=== PATIENT | male | born 1955 | race Caucasian/White ===

== ENCOUNTER 2020-03-26 17:39 | Observation (INO) ==
[2020-03-26] MEDS ORDERED: Ondansetron 4 MG/2 ML VIAL IVP PRN (20:03)
[2020-03-26] MEDS ORDERED: Ipratropium/Albuterol Neb 3 ML IH PRN (20:05)
[2020-03-26] MEDS ORDERED: Nitroglycerin 0.4 MG TAB.SUBL SL PRN (20:05)
[2020-03-26] MEDS ORDERED: Morphine Sulfate 2 MG/ML SYRINGE IVP PRN (20:06)
[2020-03-26] MEDS ORDERED: Isovue-370 500 ML BOTTLE IVP ONE (20:06)
[2020-03-26] MEDS ORDERED: 0.9 % Sodium Chloride 1,000 ML IVC ONE (20:07)
[2020-03-26] MEDS ORDERED: Aspirin 325 MG TABLET PO ONE (20:09)
[2020-03-27 02:53] LABS: Hematocrit 40.5 % (37.5-50.1); Hemoglobin 13.7 g/dL (12.9-16.9); Mean Corpuscular HGB Conc 33.8 g/dL (31.6-35.5); Mean Corpuscular Hemoglobin 31.1 pg (28.0-33.3); Mean Platelet Volume 9.8 fL (9.4-12.4); Platelet Count 188 K/mcL (140-400); Red Cell Distribution Width 12.9 % (11.5-14.5); White Blood Count 6.8 K/mcL (4.3-11.1)
[2020-03-27 03:12] LABS: BUN/Creatinine Ratio 33 (6-26); Blood Urea Nitrogen 33 mg/dL (8-23); Calcium 9.2 mg/dL (8.6-10.3); Carbon Dioxide 21 mEq/L (23-29); Chloride 106 mEq/L (98-107); Chol/HDL Ratio 5.3 (0-4.9); Cholesterol 155 mg/dL (< 200); Glucose 99 mg/dL (70-105); HDL Cholesterol 29 mg/dL (40-59); LDL Cholesterol,Calculated 88 mg/dL (< 100); Osmolality,Calculated 289 (280-300); Potassium 3.5 mEq/L (3.5-5.1); Sodium 136 mEq/L (136-145); Triglycerides 190 mg/dL (< 150); eGFR For African Americans > 60 (> 60); eGFR For Non-African Americans > 60 (> 60)
[2020-03-27] MEDS: *HR* Heparin 5,000 UNIT/ML VIAL SQ SCH ×3 (05:19→22:35)
[2020-03-27] MEDS ORDERED: Regadenoson 0.4 MG/5 ML SYRINGE IVP ONE (07:06)
[2020-03-27] MEDS: Aspirin 81 MG TAB.CHEW PO SCH (11:13)
[2020-03-27] MEDS: Acetaminophen 325 MG TABLET PO PRN ×2 (11:13→22:35)
[2020-03-27] MEDS ORDERED: Isosorbide MONOnitrate (24 HR) 30 MG TAB.ER.24H PO SCH (16:00)
[2020-03-27] MEDS: Budesonide/Formoterol 160/4.5 1 PUFF INH IH SCH (20:11)
[2020-03-28 05:39] LABS: Hematocrit 38.9 % (37.5-50.1); Hemoglobin 13.1 g/dL (12.9-16.9); Mean Corpuscular HGB Conc 33.7 g/dL (31.6-35.5); Mean Corpuscular Volume 92.2 fL (83.0-100.0); Platelet Count 201 K/mcL (140-400); Red Blood Count 4.22 M/mcL (4.19-5.50); Red Cell Distribution Width 12.9 % (11.5-14.5); White Blood Count 5.9 K/mcL (4.3-11.1)
[2020-03-28] MEDS: *HR* Heparin 5,000 UNIT/ML VIAL SQ SCH ×3 (05:44→20:15)
[2020-03-28] MEDS: Acetaminophen 325 MG TABLET PO PRN ×2 (05:46→11:38)
[2020-03-28 06:04] LABS: Alanine Aminotransferase 14 Units/L (7-52); Albumin 3.9 g/dL (3.5-5.7); Albumin/Globulin Ratio 1.6 (1.1-2.2); Alkaline Phosphatase 37 Units/L (34-104); Aspartate Amino Transferase 14 Units/L (13-39); BUN/Creatinine Ratio 30 (6-26); Bilirubin,Total 0.5 mg/dL (0.3-1.0); Blood Urea Nitrogen 28 mg/dL (8-23); Calcium 9.5 mg/dL (8.6-10.3); Carbon Dioxide 22 mEq/L (23-29); Chloride 104 mEq/L (98-107); Globulin 2.4 g/dL (2.4-3.5); Glucose 115 mg/dL (70-105); Osmolality,Calculated 286 (280-300); Potassium 3.7 mEq/L (3.5-5.1); Sodium 135 mEq/L (136-145); Total Protein 6.3 g/dL (6.4-8.9); eGFR For African Americans > 60 (> 60); eGFR For Non-African Americans > 60 (> 60)
[2020-03-28] MEDS ORDERED: Perflutren Lipid Microsphere 1.3 ML in 0.9 % Sodium Chloride 8.7 ML IVP PRN (07:34)
[2020-03-28] MEDS: Budesonide/Formoterol 160/4.5 1 PUFF INH IH SCH ×2 (08:12→21:07)
[2020-03-28] MEDS: hydroCHLOROthiazide 25 MG TABLET PO SCH (08:30)
[2020-03-28] MEDS: lisinopriL 10 MG TABLET PO SCH (08:30)
[2020-03-28] MEDS: Aspirin 81 MG TAB.CHEW PO SCH (08:30)
[2020-03-28] MEDS ORDERED: Metoprolol XL (24 HR) Succ 50 MG TAB.ER.24H PO SCH (09:00)
[2020-03-28] MEDS: Metoprolol XL (24 HR) Succ 50 MG TAB.ER.24H PO SCH (09:01)
[2020-03-29 03:32] LABS: Hematocrit 40.6 % (37.5-50.1); Hemoglobin 13.9 g/dL (12.9-16.9); Mean Corpuscular HGB Conc 34.2 g/dL (31.6-35.5); Mean Corpuscular Hemoglobin 31.2 pg (28.0-33.3); Mean Platelet Volume 9.7 fL (9.4-12.4); Platelet Count 194 K/mcL (140-400); Red Blood Count 4.46 M/mcL (4.19-5.50); White Blood Count 6.4 K/mcL (4.3-11.1)
[2020-03-29 03:51] LABS: Alanine Aminotransferase 17 Units/L (7-52); Albumin/Globulin Ratio 1.6 (1.1-2.2); Alkaline Phosphatase 38 Units/L (34-104); Aspartate Amino Transferase 16 Units/L (13-39); BUN/Creatinine Ratio 26 (6-26); Bilirubin,Total 0.6 mg/dL (0.3-1.0); Blood Urea Nitrogen 22 mg/dL (8-23); Calcium 9.7 mg/dL (8.6-10.3); Carbon Dioxide 24 mEq/L (23-29); Chloride 104 mEq/L (98-107); Globulin 2.5 g/dL (2.4-3.5); Glucose 102 mg/dL (70-105); Osmolality,Calculated 288 (280-300); Potassium 3.5 mEq/L (3.5-5.1); Sodium 137 mEq/L (136-145); Total Protein 6.5 g/dL (6.4-8.9); eGFR For African Americans > 60 (> 60); eGFR For Non-African Americans > 60 (> 60)
[2020-03-29] MEDS: *HR* Heparin 5,000 UNIT/ML VIAL SQ SCH ×2 (06:16→13:27)
[2020-03-29] MEDS: Budesonide/Formoterol 160/4.5 1 PUFF INH IH SCH (07:44)
[2020-03-29] MEDS: Acetaminophen 325 MG TABLET PO PRN (08:10)
[2020-03-29] MEDS: hydroCHLOROthiazide 25 MG TABLET PO SCH (08:10)
[2020-03-29] MEDS: Aspirin 81 MG TAB.CHEW PO SCH (08:10)
[2020-03-29] MEDS: lisinopriL 10 MG TABLET PO SCH (08:11)
[2020-03-29] MEDS: Metoprolol XL (24 HR) Succ 50 MG TAB.ER.24H PO SCH (08:13)
[2020-03-29] MEDS ORDERED: 0.9 % Sodium Chloride 1,000 ML ONE ×2 (12:24→13:07)
[2020-03-29] MEDS ORDERED: Nitroglycerin 1,000 MCG/10 ML VIAL IV ONE (12:24)
[2020-03-29] MEDS ORDERED: ISOVUE-370 200 ML INFUS..BTL ONE (12:24)
[2020-03-29] MEDS ORDERED: Heparin 1,000 UNITS/500 mL 500 ML ONE (12:24)
[2020-03-29] MEDS ORDERED: *HR* Heparin 10,000 UNIT/10 ML VIAL ONE (12:24)
[2020-03-29] MEDS ORDERED: *HR* Midazolam HCl 2 MG/2 ML VIAL ONE (13:06)
[2020-03-29] MEDS ORDERED: *HR* FentaNYL (PF) 100 MCG/2 ML VIAL ONE (13:06)
[2020-03-29 15:57] VITALS: BP 120/71
== END 2020-03-29 16:30 | disposition home or self-care (01) ==
LOC: 3BNU → SUATTDRO 19:11
PROVIDERS: ADMIT Internal Medicine; ATTEND Registered Nurse